=== PATIENT | female | born 1990 | race Caucasian/White ===

== ENCOUNTER 2017-05-19 08:07 | Emergency (ER) | payer OTHER ==
[~2017-05-19] VITALS: Ht 170.2 cm; Wt 59.1 kg
[2017-05-19 08:11] VITALS: BP 123/84; PULSE 96; TEMP 98.4
[2017-05-19] MEDS ORDERED: MINOCYCLIN100 MG/CAP PO (08:14)
[2017-05-19 10:23] LABS: AMPHETAMINE URINE NEGATIVE; BARBITURATES URINE NEGATIVE; BENZODIAZEPINES URINE NEGATIVE; BUPRENORPHINE URINE NEGATIVE; METHADONE URINE NEGATIVE; OPIATES URINE NEGATIVE; OXYCODONE URINE NEGATIVE; PHENCYCLIDINE URINE NEGATIVE; PROPOXYPHENE URINE NEGATIVE; THC CANNABINOIDS URINE NEGATIVE; TRICYCLIC ANTIDEPRESS URINE NEGATIVE
[2017-05-19 10:35] LABS: HIV 1/2 Antibodies Non-Reactive; HIV-1p24 Antigen Non-Reactive
[2017-05-20] MEDS ORDERED: LEVAQUIN 5500 MG/TA1 PO (17:23)
[2017-05-20] MEDS ORDERED: FLAGYL500 MG PO ×2 (17:23→17:25)
[2017-05-20] MEDS ORDERED: ZITHROMAX500 M2 PO (17:23)
[2017-05-20] MEDS ORDERED: LEVAQUIN 2250 MG/TAB PO (17:25)
== END 2017-05-19 11:01 | disposition home or self-care (01) ==
LOC: COL.ER 08:07
PROVIDERS: Emergency Medicine
DX: S20.229A Contusion of unspecified back wall of thorax, initial encounter (principal); T74.21XA Adult sexual abuse, confirmed, initial encounter; Y07.9 Unspecified perpetrator of maltreatment and neglect

== ENCOUNTER → 2017-05-19 | Outpatient (REF) ==
[~2017-05-19] VITALS: Ht 170.2 cm; Wt 59.1 kg
[~2017-05-19] MED LIST: FLAGYL500 MG PO; LEVAQUIN 2250 MG/TAB PO; LEVAQUIN 5500 MG/TA1 PO; MINOCYCLIN100 MG/CAP PO; ZITHROMAX500 M2 PO
[2017-05-19 08:42] VITALS: BP 123/84; PULSE 96; TEMP 98.4
== END ==
LOC: COL.ER 08:41
DX: T74.21XA Adult sexual abuse, confirmed, initial encounter (principal); S10.83XA Contusion of other specified part of neck, initial encounter; S20.412A Abrasion of left back wall of thorax, initial encounter; S20.411A Abrasion of right back wall of thorax, initial encounter; Y07.59 Other non-family member, perpetrator of maltreatment and neglect